=== PATIENT | female | born 1955 | race Caucasian/White ===

== ENCOUNTER → 2024-03-27 08:12 | Outpatient (REF) | payer MEDICARE, SELFPAY | LOC: HWRAD 08:12 | PROVIDERS: ATTENDING PHYSICIAN Physician Assistant | DX: M81.0 Age-related osteoporosis without current pathological fracture (principal); Z12.31 Encounter for screening mammogram for malignant neoplasm of breast | CPT/HCPCS: 77063; 77067; 77080 ==

== ENCOUNTER → 2024-06-12 09:54 | Outpatient (REF) | payer MEDICARE, SELFPAY | LOC: HWRAD 09:54 | PROVIDERS: ATTENDING PHYSICIAN Physician Assistant | DX: R79.89 Other specified abnormal findings of blood chemistry (principal) | CPT/HCPCS: 76700 ==

== ENCOUNTER → 2024-09-26 08:21 | Outpatient (REF) | payer MEDICARE, SELFPAY | LOC: DHSLP 08:21 | PROVIDERS: ATTENDING PHYSICIAN Physician Assistant | DX: G47.33 Obstructive sleep apnea (adult) (pediatric) (principal) | CPT/HCPCS: 95800 ==

== ENCOUNTER → 2025-03-01 13:33 | Outpatient (REF) | payer MEDICARE, SELFPAY | LOC: RAD 13:33 | PROVIDERS: ATTENDING PHYSICIAN Family Medicine | DX: R05.3 Chronic cough (principal) | CPT/HCPCS: 71046 ==

== ENCOUNTER → 2025-04-22 07:39 | Outpatient (REF) | payer MEDICARE, SELFPAY | LOC: HWRAD 07:39 | PROVIDERS: ATTENDING PHYSICIAN Internal Medicine Gastroenterology; FAMILY PHYSICIAN Physician Assistant | DX: K76.0 Fatty (change of) liver, not elsewhere classified (principal) | CPT/HCPCS: 76700 ==